=== PATIENT | male | born 2000 | race Caucasian/White ===

== ENCOUNTER 2022-09-28 10:23 | Emergency (ER) | payer BC, OTHER ==
[~2022-09-28] VITALS: Ht 177.8 cm; Wt 65.7 kg
[~2022-09-28 10:23] MED LIST: MULT-241 PO; NEOM28.34 EXT
[2022-09-28] MEDS ORDERED: KETOROLAC 15 MG/ML VIAL IVP ONE (11:15)
[2022-09-28] MEDS ORDERED: ONDANSETRON 4 MG/2 ML (SDV) Z0FRAN IVP ONE (11:15)
[2022-09-28] MEDS ORDERED: IOHEXOL 350 MG/ML 100 ML (OMNIPAQUE 350) VIAL IV ONE (11:30)
[2022-09-28] MEDS ORDERED: HOLD METFORMIN - RECEIVED CONTRAST 20 ML VIAL IV SCH (11:30)
[2022-09-28] MEDS ORDERED: NS 100 ML (IVPB) BAG IV ONE (11:30)
[2022-09-28 11:39] LABS: BASOPHILS % (AUTO) 0 % (0-10); EOSINOPHILS # (AUTO) 0.1 10^3/uL (0.0-0.3); EOSINOPHILS % (AUTO) 1 % (0-10); HEMATOCRIT 41 % (40-54); HEMOGLOBIN 13.7 g/dL (13.3-17.7); LYMPHOCYTES % (AUTO) 19 % (12-44); MEAN CORPUSCULAR HEMOGLOBIN 31 pg (25-34); MEAN CORPUSCULAR HGB CONC 33 g/dL (32-36); MEAN CORPUSCULAR VOLUME 93 fL (80-99); MEAN PLATELET VOLUME 8.2 fL (9.0-12.2); MONOCYTES # (AUTO) 0.7 10^3/uL (0.0-1.0); MONOCYTES % (AUTO) 7 % (0-12); NEUTROPHILS # (AUTO) 7.6 10^3/uL (1.8-7.8); NEUTROPHILS % (AUTO) 72 % (42-75); PLATELET COUNT 364 10^3/uL (130-400); WHITE BLOOD COUNT 10.5 10^3/uL (4.3-11.0)
[2022-09-28 11:52] LABS: ALBUMIN 4.6 GM/DL (3.2-4.5); CHLORIDE 102 MMOL/L (98-107); POTASSIUM 4.1 MMOL/L (3.6-5.0); SODIUM 140 MMOL/L (135-145)
[2022-09-28 11:53] LABS: CALCIUM 9.7 MG/DL (8.5-10.1)
[2022-09-28 11:54] LABS: GLUCOSE 116 MG/DL (70-105)
[2022-09-28 11:55] LABS: TOTAL PROTEIN 7.5 GM/DL (6.4-8.2)
[2022-09-28 11:56] LABS: BILIRUBIN,TOTAL 0.7 MG/DL (0.1-1.0); CARBON DIOXIDE 26 MMOL/L (21-32)
[2022-09-28 11:58] LABS: ALKALINE PHOSPHATASE 52 U/L (40-136); CREATININE SERUM 1.01 MG/DL (0.60-1.30); GFR ESTIMATED 109
[2022-09-28 11:59] LABS: BUN/CREATININE RATIO 14
[2022-09-28 12:01] LABS: ALANINE AMINOTRANSFERASE 16 U/L (0-55)
--- NOTE | 2022-09-28 12:15 | ED Abdominal Pain ---
General Chief Complaint: Abdominal/GI Problems Stated Complaint: ABD PAIN Nursing Triage Note: PT AMB TO RM 9 WITH COMPLAINT OF ABD PAIN. DESCRIBES A GAS PAIN. STATES HE IS DIZZY AND NAUSEATED. STATES WORKS FROM 2AM-7AM AND STARTED ON HIS DRIVE HOME FROM WORK. Source of Information: Patient Exam Limitations: No Limitations History of Present Illness Date Seen by Provider: Sep 28, 2022 Time Seen by Provider: 11:10 Initial Comments Patient is a 21-year-old male who presents to the emergency department for evaluation of lower abdominal pain that began at approximately 7 AM this morning. Patient has a history of bipolar disorder for which she takes lithium and a new medication the name of which neither him or his family is able to remember. Patient states he has had some mild nausea without emesis. Denies any diarrhea or constipation. No bloody stools. No recent abdominal trauma. States he had a hernia repair but denies any other historical surgeries. Allergies and Home Medications Allergies Coded Allergies: No Known Drug Allergies (Unverified , 09/28/22) Patient Home Medication List Home Medication List Reviewed: Yes Review of Systems Review of Systems Constitutional: no symptoms reported EENTM: No Symptoms Reported Respiratory: No Symptoms Reported Cardiovascular: No Symptoms Reported Gastrointestinal: See HPI, Abdominal Pain, Nausea Genitourinary: No Symptoms Reported Musculoskeletal: no symptoms reported Skin: no symptoms reported Psychiatric/Neurological: No Symptoms Reported Endocrine: No Symptoms Reported Hematologic/Lymphatic: No Symptoms Reported Past Epohieg-Hfeevk-Huaqhm Hx Patient Social History Tobacco Use?: No Use of E-Cig and/or Vaping dev: No Substance use?: No Alcohol Use?: No Pt feels they are or have been: No Immunizations Up To Date Influenza Vaccine Up-to-Date: Yes; Up-to-Date First/Initial COVID19 Vaccinat: no Second COVID19 Vaccination Brodie: no Physical Exam Vital Signs Vital Signs - First Documented 09/28/22 10:30 Temp 35.6 Pulse 50 Resp 19 B/P (MAP) 131/74 (93) Pulse Ox 99 O2 Delivery Room Air Capillary Refill : Less Than 3 Seconds Height/Weight/BMI Height: '" Weight: lbs. oz. kg; 20.00 BMI Method: General Appearance: WD/WN, no apparent distress HEENT: PERRL/EOMI, normal ENT inspection, TMs normal, pharynx normal Neck: non-tender, full range of motion, supple, normal inspection Respiratory: chest non-tender, lungs clear, normal breath sounds, no respiratory distress, no accessory muscle use Gastrointestinal: normal bowel sounds, non tender, soft Extremities: normal range of motion, non-tender Neurologic/Psychiatric: no motor/sensory deficits, alert, normal mood/affect, oriented x 3 Skin: normal color, warm/dry Progress/Results/Core Measures Results/Orders Lab Results Laboratory Tests Test 09/28/22 11:29 Range/Units White Blood Count 10.5 4.3-11.0 10^3/uL Red Blood Count 4.43 4.30-5.52 10^6/uL Hemoglobin 13.7 13.3-17.7 g/dL Hematocrit 41 40-54 % Mean Corpuscular Volume 93 80-99 fL Mean Corpuscular Hemoglobin 31 25-34 pg Mean Corpuscular Hemoglobin Concent 33 32-36 g/dL Red Cell Distribution Width 12.3 10.0-14.5 % Platelet Count 364 130-400 10^3/uL Mean Platelet Volume 8.2 L 9.0-12.2 fL Immature Granulocyte % (Auto) 0 % Neutrophils (%) (Auto) 72 42-75 % Lymphocytes (%) (Auto) 19 12-44 % Monocytes (%) (Auto) 7 0-12 % Eosinophils (%) (Auto) 1 0-10 % Basophils (%) (Auto) 0 0-10 % Neutrophils # (Auto) 7.6 1.8-7.8 10^3/uL Lymphocytes # (Auto) 2.0 1.0-4.0 10^3/uL Monocytes # (Auto) 0.7 0.0-1.0 10^3/uL Eosinophils # (Auto) 0.1 0.0-0.3 10^3/uL Basophils # (Auto) 0.0 0.0-0.1 10^3/uL Immature Granulocyte # (Auto) 0.0 0.0-0.1 10^3/uL Sodium Level 140 135-145 MMOL/L Potassium Level 4.1 3.6-5.0 MMOL/L Chloride Level 102 98-107 MMOL/L Carbon Dioxide Level 26 21-32 MMOL/L Anion Gap 12 5-14 MMOL/L Blood Urea Nitrogen 14 7-18 MG/DL Creatinine 1.01 0.60-1.30 MG/DL Estimat Glomerular Filtration Rate 109 BUN/Creatinine Ratio 14 Glucose Level 116 H 70-105 MG/DL Calcium Level 9.7 8.5-10.1 MG/DL Corrected Calcium 8.5-10.1 MG/DL Total Bilirubin 0.7 0.1-1.0 MG/DL Aspartate Amino Transf (AST/SGOT) 18 5-34 U/L Alanine Aminotransferase (ALT/SGPT) 16 0-55 U/L Alkaline Phosphatase 52 40-136 U/L Total Protein 7.5 6.4-8.2 GM/DL Albumin 4.6 H 3.2-4.5 GM/DL My Orders Orders - EDILMA STONE [employer] Cbc With Automated Diff (09/28/22 11:14) Comprehensive Metabolic Panel (09/28/22 11:14) Rumsey Level (09/28/22 11:14) Iv/Invasive Line Insertion .IV INSERT (09/28/22 11:14) Ct Abdomen/Pelvis W (09/28/22 11:14) Ua Culture If Indicated (09/28/22 11:14) Ondansetron Injection (Zofran Injectio (09/28/22 11:15) Ketorolac Injection (Toradol Injection) (09/28/22 11:15) Iohexol Injection (Omnipaque 350 Mg/Ml 1 (09/28/22 11:30) Received Contrast (Hold Metformin- Contr (09/28/22 11:30) Ns (Ivpb) (Sodium Chloride 0.9% Ivpb Bag (09/28/22 11:30) Medications Given in ED Current Medications Medications Dose Ordered Sig/Dirk Route Start Time Stop Time Status Last Admin Dose Admin Iohexol 100 ml ONCE ONCE IV 09/28/22 11:30 09/28/22 11:31 DC 09/28/22 12:39 75 ML Ketorolac Tromethamine 15 mg ONCE ONCE IVP 09/28/22 11:15 09/28/22 11:17 DC 09/28/22 11:27 15 MG Ondansetron HCl 4 mg ONCE ONCE IVP 09/28/22 11:15 09/28/22 11:16 DC 09/28/22 11:27 4 MG Sodium Chloride 100 ml ONCE ONCE IV 09/28/22 11:30 09/28/22 11:31 DC 09/28/22 12:39 80 ML Vital Signs/I&O 09/28/22 10:30 Temp 35.6 Pulse 50 Resp 19 B/P (MAP) 131/74 (93) Pulse Ox 99 O2 Delivery Room Air Blood Pressure Mean: 93 Progress Progress Note : Progress Note Patient is nontoxic and well-hydrated on exam. There is some left lower quadrant tenderness to palpation noted on exam of the abdomen. Vital signs are reassuring without fever or tachycardia. Laboratory evaluation is unremarkable. CT of the abdomen pelvis is acutely negative. Rumsey level was obtained but I was informed this is a send out. Patient will be discharged home with recommendations for supportive care and close follow-up with PCP. Return precautions for urgent symptomology discussed. Patient verbalized understanding. Departure Impression Primary Impression: Abdominal pain Qualified Codes: R10.32 - Left lower quadrant pain Disposition: 01 HOME, SELF-CARE Condition: Stable Departure-Patient Inst. Decision time for Depature: 13:30 Referrals: ROSE BEACH MD (PCP/Family) Primary Care Physician Patient Instructions: Abdominal Pain, Adult ED EDILMA STNOE APRN Sep 28, 2022 12:15
--- NOTE | 2022-09-28 12:49 | Diagnostic Imaging Report ---
EXAMINATION: CT abdomen and pelvis with intravenous contrast. TECHNIQUE: Multiple contiguous axial images were obtained through the abdomen and pelvis after the uneventful administration of intravenous contrast. All CT scans use one or more of the following dose optimizing techniques: Automated exposure control, MA and/or KvP adjustment based on patient size and exam type or iterative reconstruction. HISTORY: Lower abdominal pain. COMPARISON: None available. FINDINGS: Lung bases: The lung bases are clear. Solid organs: The liver is normal without focal lesion. The gallbladder is normal. There is no biliary ductal dilation. Pancreas is normal. Spleen is normal. Adrenal glands are normal. The kidneys are normal without hydronephrosis. Bowel: The stomach and small bowel are normal without obstruction. The colon and appendix are normal. Peritoneum: There is no intraperitoneal free fluid or free air. No suspicious lymphadenopathy. Vasculature: Normal without aneurysm. Musculoskeletal: No suspicious osseous lesion or compression fracture. Pelvis: The prostate gland is normal. The urinary bladder is normal. IMPRESSION: 1. No acute abnormality in the abdomen or pelvis. Dictated by: Dictated on workstation # [id number]
[2022-09-28 13:41] VITALS: BP 108/84
[2022-09-28 13:47] LABS: BILIRUBIN,URINE NEGATIVE (NEGATIVE); CLARITY,URINE CLEAR; COLOR,URINE YELLOW; GLUCOSE, URINE (UA) NEGATIVE (NEGATIVE); KETONES,URINE 1+ (NEGATIVE); LEUKOCYTE ESTERASE ,URINE NEGATIVE (NEGATIVE); NITRITE,URINE NEGATIVE (NEGATIVE); PROTEIN,URINE NEGATIVE (NEGATIVE)
[2022-09-28 13:57] LABS: BACTERIA,URINE NEGATIVE /HPF; SQUAMOUS EPITHELIAL CELL,UR RARE /HPF
== END 2022-09-28 13:41 | disposition home or self-care (01) ==
LOC: ER 10:27
DX: R10.32 Left lower quadrant pain (principal); F31.9 Bipolar disorder, unspecified; Z98.890 Other specified postprocedural states; Z79.899 Other long term (current) drug therapy
CPT/HCPCS: 36415; 74177; 80053; 80178; 81000; 85025